=== PATIENT | male | born 2000 | race Caucasian/White ===

== ENCOUNTER → 2022-03-07 | Outpatient (REF) | payer BC, OTHER | LOC: M LAB REF 17:02 | PROVIDERS: ATTEND Otolaryngology | DX: K14.8 Other diseases of tongue (principal) ==

== ENCOUNTER → 2023-04-27 | Outpatient (CLI) | payer BC | LOC: M RAD 07:01 | PROVIDERS: ATTEND Physician Assistant Medical | DX: R10.9 Unspecified abdominal pain (principal); R12 Heartburn; R94.5 Abnormal results of liver function studies; R14.3 Flatulence; R14.0 Abdominal distension (gaseous); K76.0 Fatty (change of) liver, not elsewhere classified ==

== ENCOUNTER → 2023-05-13 | Outpatient (CLI) | payer BC ==
[~2023-05-13] MED LIST: E-Z-GAS II EFFERVESCENT PACKET (SODIUM BICARB./CITRIC ACID/SIMETHICONE) As Ordered ONE; E-Z-HD 98% w/w 340GM SUSP BTL As Ordered ONE; E-Z-PAQUE 96% w/w SUSP 176GM BTL As Ordered ONE
== END ==
LOC: M RAD 09:42
PROVIDERS: ATTEND Physician Assistant Medical
DX: R10.9 Unspecified abdominal pain (principal); R12 Heartburn; R94.5 Abnormal results of liver function studies; R14.3 Flatulence; K21.9 Gastro-esophageal reflux disease without esophagitis; R93.3 Abnormal findings on diagnostic imaging of other parts of digestive tract

== ENCOUNTER → 2023-08-31 | Outpatient (CLI) | payer BC ==
[2023-08-31 11:33] LABS: HEMATOCRIT 46.2 % (42.0-52.0); HEMOGLOBIN 15.3 g/dl (13.5-17.5); MEAN CORPUSCULAR HEMOGLOBIN 29.3 pg (27.0-33.0); MEAN CORPUSCULAR HGB CONC 33.1 g/dl (32.0-36.5); MEAN CORPUSCULAR VOLUME 88.5 fl (80.0-96.0); PLATELET COUNT, AUTOMATED 239 10^3/uL (150-450); RED BLOOD COUNT 5.22 10^6/uL (4.30-6.10); WHITE BLOOD COUNT 9.7 10^3/uL (4.0-10.0)
[2023-08-31 11:40] LABS: ERYTHROCYTE SEDIMENTATION RATE 9 mm/hr (0-15)
[2023-08-31 11:54] LABS: ALBUMIN 4.7 G/DL (3.2-5.2); ALKALINE PHOSPHATASE 65 U/L (46-116); ALT/SGPT 63 U/L (7.0-40); AST/SGOT 17 U/L (<34); BILIRUBIN,TOTAL 0.5 MG/DL (0.3-1.2); BLOOD UREA NITROGEN 18 MG/DL (9-23); CALCIUM LEVEL 9.6 MG/DL (8.5-10.1); CARBON DIOXIDE LEVEL 31 MMOL/L (20-31); CHLORIDE LEVEL 105 MMOL/L (98-107); CREATININE FOR GFR 1.01 MG/DL (0.70-1.30); GLOMERULAR FILTRATION RATE > 60.0 (>60); GLUCOSE, FASTING 67 MG/DL (60-100); POTASSIUM SERUM 4.2 MMOL/L (3.5-5.1); SODIUM LEVEL 142 MMOL/L (136-145)
[2023-09-02 09:01] LABS: QuantiFERON-TB Gold Plus NEGATIVE (NEGATIVE)
== END ==
LOC: M PLALAB 08:50
PROVIDERS: ATTEND Physician Assistant Medical
DX: K52.9 Noninfective gastroenteritis and colitis, unspecified (principal); R94.5 Abnormal results of liver function studies

== ENCOUNTER → 2024-03-03 | Outpatient (REF) | payer BC ==
[2024-03-03 18:23] LABS: C REACTIVE PROTEIN QUANTITATIV < 0.50 MG/DL (<1.0)
[2024-03-03 18:24] LABS: COMPLEMENT C3 190.2 MG/DL (82.0-160.0); COMPLEMENT C4 23.9 MG/DL (12-36); IMMUNOGLOBULIN A 136.8 MG/DL (40-350); IMMUNOGLOBULIN G 735 MG/DL (650-1600)
[2024-03-03 18:44] LABS: IMMUNOGLOBULIN M 149.5 MG/DL (50-300)
== END ==
LOC: M SFHCRHEU 15:07
PROVIDERS: ATTEND Internal Medicine
DX: B99.9 Unspecified infectious disease (principal); K52.9 Noninfective gastroenteritis and colitis, unspecified; R53.83 Other fatigue